=== PATIENT | male | born 1995 | race Caucasian/White ===

== ENCOUNTER 2017-10-26 16:22 | Emergency (ER) | payer OTHER ==
[~2017-10-26] VITALS: Ht 172.7 cm; Wt 64.6 kg
[~2017-10-26 16:22] MED LIST: FLEXERIL10 MG PO; NAPROSYN500 MG PO; NOHOMEMEDS
[2017-10-26 18:32] VITALS: BP 124/63
[2017-10-26] MEDS ORDERED: MOTRIN800 MG PO (18:49)
[2017-10-26] MEDS ORDERED: VALIUM5 MG PO (18:49)
[2017-10-26] MEDS ORDERED: NORCO 7.5/321 TABLET PO (20:09)
== END 2017-10-26 20:19 | disposition home or self-care (01) ==
LOC: EME 16:22
DX: S06.0X0A Concussion without loss of consciousness, initial encounter (principal); S16.1XXA Strain of muscle, fascia and tendon at neck level, initial encounter; W10.9XXA Fall (on) (from) unspecified stairs and steps, initial encounter; F17.200 Nicotine dependence, unspecified, uncomplicated; Z88.0 Allergy status to penicillin
CPT/HCPCS: 72040; 99281; 99283; J3010